=== PATIENT | male | born 1990 | race African-American/Black ===

== ENCOUNTER 2017-02-28 17:42 | Emergency (ER) | payer SELFPAY ==
--- NOTE | 2017-02-28 18:10 | ER Document Report ---
ED Medical Screen (RME) - General Chief Complaint: Abdominal Pain Stated Complaint: ABDOMINAL PAIN Time Seen by Provider: 02/28/17 18:02 Notes: 27-year-old male patient reports onset 2 weeks ago on a Wednesday of feeling fatigued with no energy after he got off work. He reportedly had a slight fever to 100 at that time. The symptoms lasted about 2 days and then got better. Symptoms returned on Wednesday 3 days ago, where he felt weak and had epigastric discomfort. He reports the pain comes and goes but he has a constant nauseousness. He made himself vomit today but otherwise had not vomited. There are no URI symptoms. Brief exam shows no heel strike or rebound tenderness. He did have one brief episode of tenderness in palpating the right lower quadrant. There is no epigastric tenderness at this time but he states it seems to come and go, and there was no right upper quadrant tenderness. I have greeted and performed a rapid initial assessment of this patient. A comprehensive ED assessment and evaluation of the patient, analysis of test results and completion of the medical decision making process will be conducted by additional ED providers. TRAVEL OUTSIDE OF THE [place] IN LAST 30 DAYS: No - Related Data Allergies/Adverse Reactions: No Known Allergies Allergy (Verified 02/28/17 17:42) Past Medical History - Social History Frequency of alcohol use: None Drug Abuse: None Renal/ Medical History: Denies: Hx Peritoneal Dialysis Physical Exam - Vital signs Vitals: Temp Pulse Resp BP Pulse Ox 99.7 F 73 16 122/67 100 02/28/17 17:49 02/28/17 17:49 02/28/17 17:49 02/28/17 17:49 02/28/17 17:49 Course - Vital Signs Vital signs: Temp Pulse Resp BP Pulse Ox 99.7 F 73 16 122/67 100 02/28/17 17:49 02/28/17 17:49 02/28/17 17:49 02/28/17 17:49 02/28/17 17:49
[2017-02-28 18:29] LABS: ABSOLUTE EOSINOPHILS # (AUTO) 0.1 10^3/uL (0.0-0.6); ABSOLUTE LYMPHOCYTES (AUTO) 1.2 10^3/uL (0.5-4.7); ABSOLUTE MONOCYTES (AUTO) 1.1 10^3/uL (0.1-1.4); ABSOLUTE NEUT (AUTO) 6.3 10^3/uL (1.7-8.2); BASOPHILS % (AUTO) 0.5 % (0-2); EOSINOPHILS % (AUTO) 0.8 % (0-6); HEMATOCRIT 45.4 % (37.9-51.0); HEMOGLOBIN 15.4 g/dL (13.5-17.0); HGB HCT DIFFERENCE 0.8; LYMPHOCYTES % (AUTO) 13.8 % (13-45); MEAN CORPUSCULAR HEMOGLOBIN 27.7 pg (27.0-33.4); MEAN CORPUSCULAR VOLUME 82 fl (80-97); MONOCYTES % (AUTO) 12.2 % (3-13); RED BLOOD COUNT 5.56 10^6/uL (4.35-5.55); RED CELL DISTRIBUTION WIDTH 12.9 % (11.5-14.0); SEGMENTED NEUTROPHILS % (AUTO) 72.7 % (42-78); WHITE BLOOD COUNT 8.7 10^3/uL (4.0-10.5)
[2017-02-28 18:36] LABS: APPEARANCE,URINE SLIGHTLY-CLOUDY; BILIRUBIN,URINE NEGATIVE (NEGATIVE); GLUCOSE, URINE NEGATIVE (NEGATIVE); KETONES,URINE TRACE mg/dL (NEGATIVE); LEUKOCYTE ESTERASE,URINE NEGATIVE (NEGATIVE); NITRITE,URINE NEGATIVE (NEGATIVE); PROTEIN,URINE NEGATIVE (NEGATIVE); URINE SPECIFIC GRAVITY 1.014; UROBILINOGEN,URINE NEGATIVE mg/dL (<2.0)
[2017-02-28 18:45] LABS: ALANINE AMINOTRANSFERASE 35 U/L (21-72); ALBUMIN 4.5 g/dL (3.5-5.0); ALKALINE PHOSPHATASE 43 U/L (38-126); ANION GAP 13 (5-19); ASPARTATE AMINO TRANSFERASE 27 U/L (17-59); BILIRUBIN,DIRECT 0.2 mg/dL (0.0-0.4); BILIRUBIN,TOTAL 0.6 mg/dL (0.2-1.3); BLOOD UREA NITROGEN 8 mg/dL (7-20); CALCIUM 9.4 mg/dL (8.4-10.2); CARBON DIOXIDE 31 mmol/L (22-30); CHLORIDE 97 mmol/L (98-107); CREATININE RESULT 0.95 mg/dL (0.52-1.25); GLUCOSE 99 mg/dL (75-110); LIPASE 72.7 U/L (23-300); POTASSIUM 3.8 mmol/L (3.6-5.0); SODIUM 140.8 mmol/L (137-145); TOTAL PROTEIN 7.7 g/dL (6.3-8.2)
[2017-02-28] MEDS ORDERED: NORMAL SALINE 1000 ML 1,000 ML IV ONE (18:46)
[2017-02-28] MEDS ORDERED: NORMAL SALINE 1000 ML 1,000 ML IV PRN (18:46)
--- NOTE | 2017-02-28 18:48 | ER Document Report ---
ED General - General Chief Complaint: Abdominal Pain Stated Complaint: ABDOMINAL PAIN Time Seen by Provider: 02/28/17 18:02 Notes: 27 years old male presents today with nearly 3 weeks history of generalized weakness tiredness. Denied any fever chills earache sore throat headache denies any chest pain cough shortness of breath. Denies any nausea vomiting diarrhea dysuria frequency urgency. TRAVEL OUTSIDE OF THE [place] IN LAST 30 DAYS: No - Related Data Allergies/Adverse Reactions: No Known Allergies Allergy (Verified 02/28/17 17:42) Home Medications: Current Home Medications No Home Medications 02/28/17 [History] Past Medical History - Social History Smoking Status: Never Smoker Frequency of alcohol use: None Drug Abuse: None Family History: Reviewed & Not Pertinent Patient has suicidal ideation: No Patient has homicidal ideation: No Renal/ Medical History: Denies: Hx Peritoneal Dialysis Review of Systems - Review of Systems Notes: REVIEW OF SYSTEMS: CONSTITUTIONAL : Denies fever, chills, or sweats. Denies recent illness. EENT: Denies eye, ear, throat, or mouth pain or symptoms. Denies nasal or sinus congestion or discharge. Denies throat, tongue, or mouth swelling or difficulty swallowing. CARDIOVASCULAR: Denies chest pain. Denies palpitations or racing or irregular heart beat. Denies ankle edema. RESPIRATORY: Denies cough, cold, or chest congestion. Denies shortness of breath, difficulty breathing, or wheezing. GASTROINTESTINAL: Denies abdominal pain or distention. Denies nausea, vomiting , or diarrhea. Denies blood in vomitus, stools, or per rectum. Denies black, tarry stools. Denies constipation. GENITOURINARY: Denies difficulty urinating, painful urination, burning, frequency, blood in urine, or discharge. MUSCULOSKELETAL: Denies back or neck pain or stiffness. Denies joint pain or swelling. SKIN: Denies rash, lesions or sores. HEMATOLOGIC : Denies easy bruising or bleeding. LYMPHATIC: Denies swollen, enlarged glands. NEUROLOGICAL: Denies confusion or altered mental status. Denies passing out or loss of consciousness. Denies dizziness or lightheadedness. Denies headache. Denies weakness or paralysis or loss of use of either side. Denies problems with gait or speech. Denies sensory loss, numbness, or tingling. Denies seizures. PSYCHIATRIC: Denies anxiety or stress. Denies depression, suicidal ideation, or homicidal ideation. ALL OTHER SYSTEMS REVIEWED AND NEGATIVE. Dictation was performed using [employer] voice recognition software PHYSICAL EXAMINATION: GENERAL: Well-appearing, well-nourished and in no acute distress. HEAD: Atraumatic, normocephalic. EYES: Pupils equal round and reactive to light, extraocular movements intact, sclera anicteric, conjunctiva are normal. ENT: Nares patent, oropharynx clear without exudates. Moist mucous membranes. NECK: Normal range of motion, supple without lymphadenopathy LUNGS: Breath sounds clear to auscultation bilaterally and equal. No wheezes rales or rhonchi. HEART: Regular rate and rhythm without murmurs ABDOMEN: Soft, nontender, nondistended abdomen. No guarding, no rebound. No masses appreciated. Musculoskeletal: Normal range of motion, no pitting or edema. No cyanosis. NEUROLOGICAL: Cranial nerves grossly intact. Normal speech, normal gait. Normal sensory, motor exams PSYCH: Normal mood, normal affect. SKIN: Warm, Dry, normal turgor, no rashes or lesions noted. Physical Exam - Vital signs Vitals: Temp Pulse Resp BP Pulse Ox 99.7 F 73 16 122/67 100 02/28/17 17:49 02/28/17 17:49 02/28/17 17:49 02/28/17 17:49 02/28/17 17:49 Course - Re-evaluation Re-evalutation: 02/28/17 19:37 He was given IV hydration with normal saline total of 1 L with clinical improvement he was discharged home - Vital Signs Vital signs: Temp Pulse Resp BP Pulse Ox 99.7 F 73 16 122/67 100 02/28/17 17:49 02/28/17 17:49 02/28/17 17:49 02/28/17 17:49 02/28/17 17:49 - Laboratory Result Diagrams: 02/28/17 18:10 02/28/17 18:10 Laboratory results interpreted by me: 02/28/17 02/28/17 02/28/17 18:10 18:10 18:10 RBC 5.56 H Chloride 97 L Carbon Dioxide 31 H Urine Ketones TRACE H Discharge - Discharge Clinical Impression: Dehydration, Malaise and fatigue, Viral infection Condition: Fair Disposition: HOME, SELF-CARE Instructions: Acetaminophen, Viral Syndrome ([facility]), Dehydration ([facility])
[2017-02-28 19:55] VITALS: BP 112/81
== END 2017-02-28 19:55 | disposition home or self-care (01) ==
LOC: ER 17:42
DX: B34.9 Viral infection, unspecified (principal); E86.0 Dehydration; R53.81 Other malaise; R53.83 Other fatigue; R53.1 Weakness
CPT/HCPCS: 36415; 80053; 81001; 83690; 85025; 99284

== ENCOUNTER 2020-03-29 15:02 | Emergency (ER) | payer OTHER ==
[2020-03-29] MEDS ORDERED: HYDROCODONE/ACETAMINOPHEN 10-325 MG TABLET PO ONE (15:53)
[2020-03-29] MEDS ORDERED: CEFTRIAXONE 1 GM/D5W RTU 1 GM/50 ML RTUPB IV ONE (15:54)
--- NOTE | 2020-03-29 15:57 | ER Document Report ---
HPI - HPI Time Seen by Provider: 03/29/20 15:50 Notes: 30-year-old male presents to the emergency room today for evaluation of his left index finger that he accidentally cut off the distal tip roughly an hour ago with a chain with sharp grooves. Patient states that his pain is 4 out of 5, throbbing achy. Bleeding is controlled. Denies any other area of injury. Denies any numbness or tingling to his left hand. The date of his last tetanus was 2010. Has not tried any [id number] medications for his symptoms. Denies fevers, chills, chest pain,palpitations, shortness of breath, dyspnea, nausea, vomiting, diarrhea, abdominal pain, hematuria,weakness, bowel or bladder dysfunction, saddle anesthesia, numbness or tingling in bilateral upper or lower extremities equally, muscle paralysis, weakness in bilateral upper or lower extremities equally or rash. Past Medical History - General Information source: Patient - Social History Smoking Status: Unknown if Ever Smoked Family History: Reviewed & Not Pertinent Renal/ Medical History: Denies: Hx Peritoneal Dialysis Vertical Provider Document - CONSTITUTIONAL Agree With Documented VS: Yes Exam Limitations: No Limitations General Appearance: WD/WN Notes: MEDICATIONS: I agree with the patient medications as charted by the RN. ALLERGIES: I agree with the allergies as charted by the RN. PAST MEDICAL HISTORY/PAST SURGICAL HISTORY: Reviewed and agree as charted by RN. SOCIAL HISTORY: Reviewed and agree as charted by RN. FAMILY HISTORY: No significant familial comorbid conditions directly related to patient complaint EXAM: Reviewed vital signs as charted by RN. PHYSICAL EXAMINATION:reviewed vital signs by RN GENERAL: Well-appearing, well-nourished and in no acute distress. HEAD: Atraumatic, normocephalic. EYES: Pupils equal round and reactive to light, extraocular movements intact, sclera anicteric, conjunctiva are normal. ENT: Nares patent, oropharynx clear without exudates. Moist mucous membranes. NECK: Normal range of motion, supple without lymphadenopathy LUNGS: Breath sounds clear to auscultation bilaterally and equal. No wheezes rales or rhonchi. HEART: Regular rate and rhythm without murmurs ABDOMEN: Soft, nontender, nondistended abdomen. No guarding, no rebound. No masses appreciated. Musculoskeletal: Normal range of motion, no pitting or edema. No cyanosis. Left second phalanx with amputation of the distal tip, proximal to PIP. no pain to wrist with flexion, extension, inversion, eversion of wrist. digits in right and left with full aprom. Car Park Attendant + 2 BUE equally. snuffbox tenderness negative bilaterally. radial pulses + 2 BUE equally. Negative kanavels sign. No open wounds or drainage from wrist. No vascular compromise.No body crepitus or focal area of TTP. no pain with opposition, flexion, extension, abduction and adduction on left. Motor and sensory function of ulnar, radial, medial nerves intact bilaterally and equally. strength 5/5 in BUE equally. NEUROLOGICAL: Cranial nerves grossly intact. Normal speech, normal gait. Normal sensory, motor exams PSYCH: Normal mood, normal affect. SKIN: Warm, Dry, normal turgor, no rashes or lesions noted. - INFECTION CONTROL TRAVEL OUTSIDE OF THE [place] IN LAST 30 DAYS: No Course - Re-evaluation Re-evalutation: 03/29/20 17:33 Afebrile, vital stable no distress. Nurses notes reviewed. X-ray of of his left second phalanx did show soft tissue and bony tuft amputation of the second digit. No foreign body, no acute bony abnormality per radiology. Patient's tetanus was updated. Patient given 1 g Rocephin IV. I did consult with Dr. Hitesh Moran, hand multimedia authoring specialist, at 1736 regarding his x-ray findings. He advised to give him IV antibiotics and send him home with outpatient antibiotic therapy, pain medication and he will follow up with him in the office. He advised that there is nothing we can do with the amputated part of his finger. He advised to put bacitracin at the tip of his finger and put a nonadhesive dressing to his finger. patient was given Taiban to go home with, he was placed in a finger protection splint. Consent by patient given to place left 2nd finger protection splint,. cms intact, sensory motor function intact in bilateral upper _extremities prior to splint application fiberglass splint placed without incident. cms intact 20 minutes after splint application. Splint is in good alignment. Bilateral upper extremities with motor and sensory function intact 20 minutes after application. Pt stated that splint felt comfortable. Advised to not drive, drink alcohol or operate machinery while taking medication consultation impairment of cognitive function. Patient verbalized understanding this plan. Greeted with plan of care. Patient's tetanus was updated today. After performing a Medical Screening Examination, I estimate there is LOW risk for OPEN FRACTURE, COMPARTMENT SYNDROME, DEEP VENOUS THROMBOSIS, ACUTE TENDON RUPTURE, or NEUROVASCULAR INJURY thus I consider the discharge disposition reasonable. I have reevaluated this patient multiple times and no significant life threatening changes are noted. The patient and I have discussed the diagnosis and risks, and we agree with discharging home to closely follow-up with their primary doctor or the referral orthopedist with the understanding that symptoms and presentations can change. We also discussed returning to the Emergency Department immediately if new or worsening symptoms occur. We have discussed the symptoms which are most concerning (e.g., changing or worsening pain, numbness, weakness) that necessitate immediate return - Laboratory Results Critical Laboratory Results Reviewed: No Critical Results - Radiology Results Critical Radiology Results Reviewed: No Critical Results Discharge - Discharge Clinical Impression: Amputated finger Qualifiers: Encounter type: initial encounter Qualified Code(s): S68.119A - Complete traumatic metacarpophalangeal amputation of unspecified finger, initial encounter Condition: Stable Disposition: HOME, SELF-CARE Instructions: Open Finger Tuft Fracture ([facility]), Oral Narcotic Medication ([facility]), Rocephin ([facility]), Tetanus Immunization Given ([facility]) Additional Instructions: You accidentally sustained a amputation to left second distal phalanx today. your tetanus was updated. You received IV antibiotics and you will be sent home with outpatient antibiotic therapy. Please take antibiotics as directed with food. Please follow-up with the multimedia authoring specialist, Dr. Moran, for an appointment to be seen in his office within the next few days. Please do not drive, drink alcohol or operate heavy machinery while taking medication as this can cause sedation or impairment of cognitive function. Return immediately for any new or worsening symptoms. Follow up with primary care provider, call tomorrow to make followup appointment. Prescriptions: Clindamycin HCl 300 mg PO Q6H #28 capsule Forms: Return to Work Referrals: JAJA MONTENEGRO MD [ACTIVE STAFF] - Follow up as needed JEFFERSON HALLMAN MD [COMMUNITY BASED STAFF] - Follow up as needed HITESH MORAN DO [ACTIVE STAFF] - 04/01/20
--- NOTE | 2020-03-29 16:26 | RADIOLOGY REPORT (SQ) ---
EXAM DESCRIPTION: FINGER LEFT IMAGES COMPLETED DATE/TIME: 03/29/2020 4:07 pm REASON FOR STUDY: tip of left index finger cut off x 1 hour ago COMPARISON: None. NUMBER OF VIEWS: Three views. TECHNIQUE: AP, lateral, and oblique images acquired of the left second finger. LIMITATIONS: None. FINDINGS: MINERALIZATION: Normal. BONES: Traumatic amputation of the distal 2nd tuft. No additional fractures identified. No suspicio us osseous lesions. SOFT TISSUES: Soft tissue defect at the distal 2nd digit. OTHER: No other significant finding. IMPRESSION: Soft tissue and bony tuft amputation of the 2nd digit. No additional acute bony abnorma lity. No radiopaque foreign body. TECHNICAL DOCUMENTATION: JOB ID: [id number] 2010 [employer]- All Rights Reserved Reading location - IP/workstation name: [email or web address]
[2020-03-29] MEDS ORDERED: HYDROCODONE/ACETAMINOPHEN 5-325 MG (6 TAB/ER DISP) PO PRN (17:32)
[2020-03-29] MEDS ORDERED: DIPH/PERTUSS(ACELL)/TETANUS VAC/PF 0.5 ML SYR (>=10YO) IM ONE (18:24)
[2020-03-29 18:43] VITALS: BP 132/80
== END 2020-03-29 18:51 | disposition home or self-care (01) ==
LOC: ER 15:02
DX: S61.211A Laceration without foreign body of left index finger without damage to nail, initial encounter (principal); W27.8XXA Contact with other nonpowered hand tool, initial encounter
CPT/HCPCS: 99284; 90471; 96365; 73140; 90715; J0696